=== PATIENT | female | born 1970 | race Caucasian/White ===

== ENCOUNTER 2020-07-19 20:29 | Emergency (ER) | payer OTHER ==
[~2020-07-19] VITALS: Ht 172.7 cm; Wt 100.0 kg
[2020-07-19] MEDS ORDERED: HYDROmorphone 1 mg/ml syringe IV ONE (22:00)
[2020-07-19] MEDS ORDERED: normal saline 1000ML IV soln IVB ONE (22:00)
[2020-07-19] MEDS ORDERED: ondansetron/PF 4mg/2ml inj IV ONE (22:00)
[2020-07-19 22:46] LABS: CLARITY,URINE SLIGHTLY CLOUDY (Clear); COLOR,URINE YELLOW (Yellow); GLUCOSE, URINE NEGATIVE (Neg); KETONES,URINE NEGATIVE (Neg); LEUKOCYTE ESTERASE ,URINE SMALL (Neg); NITRITES, URINE POSITIVE (Neg); OCCULT BLOOD,URINE LARGE (Neg); PROTEIN,URINE NEGATIVE (Neg); UROBILINOGEN,URINE 0.2 E.U/dL (0.2-1.0)
[2020-07-19 22:55] LABS: UA COLLECTION TYPE CLN CATCH MIDSTREAM
[2020-07-19 23:00] LABS: BACTERIA,URINE FEW /HPF (Neg); MUCUS STRANDS NONE SEEN /LPF (Neg); RBC,URINE TNTC /HPF (0-2); SQUAMOUS EPITHELIAL CELL,UR FEW /LPF (FEW)
[2020-07-19 23:18] LABS: BASOPHILS # (AUTO) 0.1 X10'3 (0-0.2); BASOPHILS % (AUTO) 0.3 % (0-1); EOSINOPHILS % (AUTO) 0 % (0-6); HEMATOCRIT 40.6 % (35.0-45.0); LYMPHOCYTES # (AUTO) 1.6 X10'3 (1.1-4.8); LYMPHOCYTES % (AUTO) 8.6 % (21-51); MEAN CORPUSCULAR HEMOGLOBIN 27.2 PG (27.0-31.0); MEAN CORPUSCULAR VOLUME 85.2 FL (78-98); MEAN PLATELET VOLUME 8.2 FL (7.4-10.4); MONOCYTES % (AUTO) 5.2 % (2-12); NEUTROPHILS # (AUTO) 16.1 X10'3 (1.8-7.7); NEUTROPHILS % (AUTO) 85.9 % (42-75); PLATELET COUNT 336 X10'3 (140-440); RED BLOOD COUNT 4.77 X10'6 (4.20-5.60); WHITE BLOOD COUNT 18.7 X10'3 (4.5-11.0)
[2020-07-19] MEDS ORDERED: ceFAZolin/D5W- 1GM premix 50 ML IV SCH (23:30)
[2020-07-19 23:31] LABS: ALANINE AMINOTRANSFERASE 52 U/L (12-78); ALBUMIN 2.9 G/DL (3.4-5.0); ALBUMIN/GLOBULIN RATIO 0.9 (1.1-1.5); ALKALINE PHOSPHATASE 149 IU/L (46-116); ANION GAP 9 (8-16); ASPARTATE AMINO TRANSFERASE 19 U/L (10-37); BILIRUBIN,TOTAL 0.4 MG/DL (0.1-1.0); BLOOD UREA NITROGEN 9 MG/DL (7-18); CALCIUM 8.5 MG/DL (8.5-10.1); CHLORIDE 109 MMOL/L (99-107); GLUCOSE 112 MG/DL (70-104); LIPASE 76 U/L (73-393); SODIUM 141 MMOL/L (135-145); TOTAL CARBON DIOXIDE 23.1 MMOL/L (24-32); TOTAL PROTEIN 6.2 G/DL (6.4-8.2); eGFR 59 ML/MIN
[2020-07-19] MEDS: HYDROmorphone 1 mg/ml syringe IV PRN (23:45)
[2020-07-20] MEDS ORDERED: PANT20TA18 PO (01:53)
[2020-07-20] MEDS ORDERED: REM100I IV (01:53)
[2020-07-20] MEDS ORDERED: SENN-263 PO (01:53)
[2020-07-20] MEDS ORDERED: ALBU8HFA PO (01:53)
[2020-07-20] MEDS ORDERED: HYDR-4353 PO (01:53)
[2020-07-20] MEDS ORDERED: BUDE10.2 INH (01:53)
[2020-07-20] MEDS: HYDROmorphone 1 mg/ml syringe IV PRN ×3 (02:11→07:29)
[2020-07-20 06:18] LABS: BASOPHILS % (AUTO) 0.2 % (0-1); EOSINOPHILS % (AUTO) 0 % (0-6); HEMATOCRIT 35.4 % (35.0-45.0); HEMOGLOBIN 11.6 g/dl (12.0-16.0); LYMPHOCYTES # (AUTO) 2.2 X10'3 (1.1-4.8); LYMPHOCYTES % (AUTO) 13.5 % (21-51); MEAN CORPUSCULAR HEMOGLOBIN 28.3 PG (27.0-31.0); MEAN CORPUSCULAR HGB CONC 32.8 g/dL (33.0-36.5); MEAN CORPUSCULAR VOLUME 86.2 FL (78-98); MEAN PLATELET VOLUME 8.5 FL (7.4-10.4); MONOCYTES # (AUTO) 1.5 X10'3 (0-0.9); MONOCYTES % (AUTO) 8.9 % (2-12); NEUTROPHILS # (AUTO) 12.8 X10'3 (1.8-7.7); NEUTROPHILS % (AUTO) 77.4 % (42-75); PLATELET COUNT 286 X10'3 (140-440); RED BLOOD COUNT 4.11 X10'6 (4.20-5.60); RED CELL DISTRIBUTION WIDTH 13.9 % (11.5-14.5); WHITE BLOOD COUNT 16.6 X10'3 (4.5-11.0)
[2020-07-20] MEDS ORDERED: CEFD300C3 PO (06:48)
[2020-07-20 08:26] VITALS: BP 132/64
== END 2020-07-20 08:29 | disposition home or self-care (01) ==
LOC: ER 20:29
DX: N39.0 Urinary tract infection, site not specified (principal); G89.18 Other acute postprocedural pain; R10.30 Lower abdominal pain, unspecified; Z90.710 Acquired absence of both cervix and uterus; Z79.2 Long term (current) use of antibiotics; Z79.899 Other long term (current) drug therapy
CPT/HCPCS: 36415; 74176; 80053; 81001; 83690; 85025; 87088; 96361; 96365; 96375; 96376; 99285; J0690; J1170; J2405; J7030

== ENCOUNTER 2020-10-21 18:10 | Emergency (ER) | payer OTHER ==
[~2020-10-21] VITALS: Ht 170.2 cm; Wt 95.5 kg
[~2020-10-21 18:10] MED LIST: ALBU8HFA PO; BUDE10.2 INH; HYDR-4353 PO; PANT20TA18 PO; REM100I IV; SENN-263 PO
[2020-10-21 18:25] VITALS: BP 126/73
[2020-10-21] MEDS ORDERED: IBUP-1985 PO (19:23)
== END 2020-10-21 19:37 | disposition home or self-care (01) ==
LOC: ER 18:11
DX: M23.92 Unspecified internal derangement of left knee (principal); M25.562 Pain in left knee; M25.462 Effusion, left knee; Z90.710 Acquired absence of both cervix and uterus; Z79.899 Other long term (current) drug therapy
CPT/HCPCS: 29505; 73564; 99283

== ENCOUNTER 2022-01-19 17:05 | Emergency (ER) | payer OTHER ==
[~2022-01-19] VITALS: Ht 172.7 cm; Wt 90.9 kg
[~2022-01-19 17:05] MED LIST changes: +IBUP-1985 PO
[2022-01-19 17:14] VITALS: BP 116/80
== END 2022-01-19 21:53 | disposition home or self-care (01) ==
LOC: ER 17:13
DX: J45.901 Unspecified asthma with (acute) exacerbation (principal); R06.02 Shortness of breath; R42 Dizziness and giddiness; Z90.710 Acquired absence of both cervix and uterus; Z79.899 Other long term (current) drug therapy
CPT/HCPCS: 93005; 99283

== ENCOUNTER 2022-10-28 21:18 | Emergency (ER) | payer OTHER ==
[~2022-10-28] VITALS: Ht 172.7 cm; Wt 79.5 kg
[2022-10-28] MEDS ORDERED: albuterol 2.5 MG/3 ML nebule NEB ONE ×2 (21:50→22:35)
[2022-10-28] MEDS ORDERED: magnesium 2GM in 50ml NS 50 ML IV ONE (21:50)
[2022-10-28] MEDS ORDERED: methylPREDNISolone sod succ 125mg/2ml vial IV ONE ×2 (21:50→22:35)
[2022-10-28] MEDS ORDERED: ondansetron/PF 4mg/2ml inj IV STA (21:58)
[2022-10-28] MEDS ORDERED: ALBU6.7H14 INH (23:05)
[2022-10-28] MEDS ORDERED: ALB0.5UD IH (23:05)
[2022-10-28] MEDS ORDERED: PRED20TA PO (23:05)
[2022-10-28 23:34] VITALS: BP 142/81
== END 2022-10-28 23:38 | disposition home or self-care (01) ==
LOC: ER 21:18
DX: J45.901 Unspecified asthma with (acute) exacerbation (principal); Z88.8 Allergy status to other drugs, medicaments and biological substances; Z79.899 Other long term (current) drug therapy
CPT/HCPCS: 71045; 94640; 96365; 96375; 99284; J2405; J2930; J3475; J7030; 94760; 96374

== ENCOUNTER 2022-12-20 06:11 | Emergency (ER) | payer OTHER ==
[~2022-12-20] VITALS: Ht 172.7 cm; Wt 77.3 kg
[~2022-12-20 06:11] MED LIST changes: +ALBU6.7H14 INH
[2022-12-20 07:10] LABS: CLARITY,URINE SLIGHTLY CLOUDY (Clear); COLOR,URINE YELLOW (Yellow); GLUCOSE, URINE NEGATIVE (Neg); KETONES,URINE NEGATIVE (Neg); LEUKOCYTE ESTERASE ,URINE NEGATIVE (Neg); NITRITES, URINE NEGATIVE (Neg); OCCULT BLOOD,URINE NEGATIVE (Neg); PROTEIN,URINE NEGATIVE (Neg); UROBILINOGEN,URINE 0.2 E.U/dL (0.2-1.0)
[2022-12-20 07:11] LABS: UA COLLECTION TYPE CLN CATCH MIDSTREAM
[2022-12-20 07:25] LABS: BACTERIA,URINE FEW /HPF (Neg); HYALINE CASTS 0-3 /LPF (NEGATIVE); MUCUS STRANDS MODERATE /LPF (Neg); RBC,URINE 0-2 /HPF (0-2); SQUAMOUS EPITHELIAL CELL,UR FEW /LPF (FEW); WBC,URINE 0-4 /HPF (0-4)
[2022-12-20 08:03] LABS: BASOPHILS # (AUTO) 0.1 X10'3 (0-0.2); BASOPHILS % (AUTO) 0.9 % (0-1); EOSINOPHILS # (AUTO) 0.4 X10'3 (0-0.9); EOSINOPHILS % (AUTO) 4.8 % (0-6); HEMATOCRIT 42.1 % (35.0-45.0); HEMOGLOBIN 13.4 g/dl (12.0-16.0); LYMPHOCYTES # (AUTO) 2.4 X10'3 (1.1-4.8); LYMPHOCYTES % (AUTO) 32.2 % (21-51); MEAN CORPUSCULAR HEMOGLOBIN 25.8 PG (27.0-31.0); MEAN CORPUSCULAR HGB CONC 31.8 g/dL (33.0-36.5); MEAN CORPUSCULAR VOLUME 81.2 FL (78-98); MEAN PLATELET VOLUME 7.5 FL (7.4-10.4); MONOCYTES # (AUTO) 0.6 X10'3 (0-0.9); MONOCYTES % (AUTO) 8.1 % (2-12); PLATELET COUNT 320 X10'3 (140-440); RED BLOOD COUNT 5.18 X10'6 (4.20-5.60); RED CELL DISTRIBUTION WIDTH 15.4 % (11.5-14.5); WHITE BLOOD COUNT 7.4 X10'3 (4.5-11.0)
[2022-12-20 08:19] LABS: ALANINE AMINOTRANSFERASE 27 U/L (12-78); ALKALINE PHOSPHATASE 90 IU/L (46-116); ANION GAP 7 (8-16); ASPARTATE AMINO TRANSFERASE 14 U/L (10-37); BILIRUBIN,TOTAL 0.3 MG/DL (0.1-1.0); BLOOD UREA NITROGEN 9 MG/DL (7-18); BUN/CREATININE RATIO 10.8 (10.0-20.0); CALCIUM 8.4 MG/DL (8.5-10.1); CHLORIDE 108 MMOL/L (99-107); CREATININE 0.83 MG/DL (0.40-0.90); GLUCOSE 106 MG/DL (70-104); POTASSIUM 4.1 MMOL/L (3.5-5.1); SODIUM 142 MMOL/L (135-145); TOTAL CARBON DIOXIDE 26.7 MMOL/L (24-32); TOTAL PROTEIN 6.1 G/DL (6.4-8.2); eGFR 72 ML/MIN
--- NOTE | 2022-12-20 09:14 | NUR ---
Assumed care of pt. Pt in stable condition AMB around her room. C/o 8/ pain in her legs. notified.
[2022-12-20 09:33] VITALS: BP 141/86
== END 2022-12-20 09:44 | disposition home or self-care (01) ==
LOC: ER 06:11
DX: M79.604 Pain in right leg (principal); M79.605 Pain in left leg; R53.1 Weakness; J45.909 Unspecified asthma, uncomplicated; G89.29 Other chronic pain; F32.A Depression, unspecified; Z79.899 Other long term (current) drug therapy
CPT/HCPCS: 36415; 80053; 81001; 83605; 84145; 85025; 93005; 99284

== ENCOUNTER 2023-03-21 18:55 | Emergency (ER) | payer OTHER ==
[~2023-03-21] VITALS: Ht 172.7 cm; Wt 82.4 kg
[2023-03-21 19:04] VITALS: BP 134/87
[2023-03-21] MEDS ORDERED: erythromycin ophthalmic ointment 1gm tube LEFTEYE ONE (19:30)
[2023-03-21] MEDS ORDERED: fluorescein sod 1mg ophthalmic strip LEFTEYE ONE (19:30)
[2023-03-21] MEDS ORDERED: proparacaine 0.5% ophthalmic drops 15ml EACHEYE ONE (19:30)
[2023-03-21] MEDS ORDERED: AMOX-117 PO (19:55)
[2023-03-21] MEDS ORDERED: amox tr/potassium clavulanate 875/125mg TAB PO ONE (19:55)
== END 2023-03-21 20:03 | disposition home or self-care (01) ==
LOC: ER 18:56
DX: S05.8X1A Other injuries of right eye and orbit, initial encounter (principal); W55.03XA Scratched by cat, initial encounter; Y93.89 Activity, other specified; Y92.89 Other specified places as the place of occurrence of the external cause; Y99.8 Other external cause status
CPT/HCPCS: 99284; J3490

== ENCOUNTER 2023-05-23 01:19 | Emergency (ER) | payer OTHER ==
[~2023-05-23] VITALS: Ht 172.7 cm; Wt 79.5 kg
[2023-05-23] MEDS ORDERED: albuterol 2.5 MG/3 ML nebule CONTNEB PRN (01:45)
[2023-05-23] MEDS ORDERED: ipratropium 0.5 MG/2.5ML nebule IH ONE (01:45)
[2023-05-23] MEDS ORDERED: methylPREDNISolone sod succ 125mg/2ml vial IV ONE (01:45)
[2023-05-23] MEDS ORDERED: LORazepam 2 mg/ml vial IV ONE (01:45)
[2023-05-23 02:07] VITALS: PULSE 83; RESP 17; O2SAT 95
[2023-05-23 03:59] VITALS: PULSE 96; RESP 16; O2SAT 94
[2023-05-23] MEDS ORDERED: PRED20TA PO (05:42)
--- NOTE | 2023-05-23 07:37 | NUR ---
RN CKING PT SAT RM AIR AT REST AT THIS TIME.
[2023-05-23 08:06] VITALS: BP 105/73; PULSE 92; RESP 18; TEMP 97.8; O2SAT 92
== END 2023-05-23 08:31 | disposition home or self-care (01) ==
LOC: ER 01:19
DX: J45.901 Unspecified asthma with (acute) exacerbation (principal); Z91.041 Radiographic dye allergy status; Z79.82 Long term (current) use of aspirin; Z90.710 Acquired absence of both cervix and uterus
CPT/HCPCS: 71045; 94640; 94644; 96374; 96375; 99285; J2060; J2930; J7030; 94760; A4615; A6449; A7015